=== PATIENT | female | born 1955 | race Caucasian/White ===

== ENCOUNTER 2021-10-19 10:37 | Emergency (ER) | payer MEDICARE, MEDICAID, SELFPAY ==
[2021-10-19 10:38] VITALS: BP 131/55; PULSE 46; RESP 15; TEMP 36.5; O2SAT 98; BMI 31.1
--- NOTE | 2021-10-19 10:52 | ECG_ITS ---
APPROVED REPORT Exam: Resting ECG HR:44 bpm ECG Measurements Heart Rate 44 AXES AR 179 P 66 QRSd 92 QRS -21 QT 460 T 43 QTc 411 Conclusion SINUS BRADYCARDIA BORDERLINE LEFT AXIS DEVIATION [QRS AXIS < -20] LOW QRS VOLTAGE IN PRECORDIAL LEADS [QRS DEFLECTION < 1.0 mV IN CHEST LEADS] BORDERLINE ECG UNCONFIRMED REPORT Electronically signed by : Juancarlos Carpenter MD 10/21/2021 17:21:21
--- NOTE | 2021-10-19 10:58 | XR_ITS ---
PROCEDURE INFORMATION: Exam: XR Chest Exam date and time: 10/19/2021 11:23 AM Age: 66 years old Clinical indication: Shortness of breath; Additional info: Sob/cp TECHNIQUE: Imaging protocol: Radiologic exam of the chest. Views: 1 view. COMPARISON: No relevant prior studies available. FINDINGS: Lungs: There is linear marking in the right mid lung field which may be related to scarring or atelectasis. There is no pulmonary consolidation or pulmonary edema. Pleural spaces: No pleural effusion. No pneumothorax. Heart/Mediastinum: No cardiomegaly. Bones/joints: There are degenerative changes of the spine. IMPRESSION: 1. No evidence of active pulmonary disease. 2. A followup PA and lateral radiograph is recommended when the patient is clinically able.
--- NOTE | 2021-10-19 10:59 | [facility].EDGENADL ---
Discharge Plan Disposition Patient Disposition: Home, Self-Care Condition: Good Chief Complaint: Upper Respiratory Infection Referrals Follow up/Referrals: Miguelina Franz APRN [Primary Care Provider] - See instructions Activity Restrictions/Add. Instructions Additional Instructions/Restrictions: Your COVID test was positive today. You should quarantine as long as you have symptoms. Take tylenol/ibuprofen as needed and stay well hydrated. Your lab tests and x-ray today were normal, but if your condition worsens, return to the emergency department. Otherwise follow up with your family physician as needed. Clinical Impressions Clinical Impression: COVID-19, Cough Instructions Patient Instructions: Cough, Coronavirus Disease 2019, DI for COVID-19 (Suspected or Confirmed ) Print Language Print Language: Dutch Discharge ED Provider: Palomo Waller General Adult HPI General Chief complaint: Upper Respiratory Infection Stated complaint: chills, no smell, sob Time Seen by Provider: 10/19/21 10:59 Mode of Arrival: Ambulatory Source of Information: Patient Limitations: No Limitations History of Present Illness HPI narrative: Patient is a 66-year-old female who presents with approximately 5 days of illness with symptoms including generalized fatigue, mild shortness of breath intermittently, nausea, intermittent cough productive of whitish sputum. She states over the past day or so she had developed chest pressure which had become constant and raise concern as she has a history of angina. She denies any prior heart attack, states she had had a stress test but its been over a year since last time. She been taking Robitussin for cough and aspirin for subjective fever. Denies any vomiting, abdominal pain, diarrhea, or any other symptoms. Related Data Allergies Allergy/AdvReac Type Severity Reaction Status Date / Time Sulfa (Sulfonamide Allergy Verified 10/19/21 11:00 Antibiotics) [facility] Social History Smoking Status: Never smoker alcohol intake: never current occupational status: other Travel in the last 8 weeks: None ROS Obtained: Yes Systems reviewed as appropriate & no additional complaints except as documented Constitutional Constitutional: Reports fatigue Eyes Eyes: Reports system reviewed and no additional complaints, except as documented ENT Ears, Nose, Mouth, and Throat: Reports system reviewed and no additional complaints, except as documented Cardiovascular Cardiovascular: Reports chest pain Respiratory Respiratory: Reports chest congestion, Reports cough and Reports cough with sputum production Gastrointestinal Gastrointestingal: Reports system reviewed and no additional complaints, except as documented Genitourinary Female Genitourinary: Reports system reviewed and no additional complaints, except as documented Musculoskeletal Musculoskeletal: Reports system reviewed and no additional complaints, except as documented Integumentary/Breasts Skin/Breast: Reports system reviewed and no additional complaints, except as documented Neurologic Neurologic: Reports system reviewed and no additional complaints, except as documented Endocrine Endocrine: Reports fatigue Physical Exam General General appearance: alert and in no apparent distress Head Head exam: atraumatic, normocephalic and normal inspection Eye Eye exam: Present normal appearance, PERRL and EOMI ENT ENT exam: Present normal exam, normal oropharynx, mucous membranes moist, TM's normal bilaterally and normal external ear exam Neck Neck exam: Present normal inspection, full ROM and trachea midline; Absent meningismus or lymphadenopathy Chest Chest inspection: Present normal inspection and symmetric chest wall rise; Absent tenderness Respiratory Respiratory exam: Present normal lung sounds bilaterally; Absent respiratory distress Cardiovascular Cardiovascular exam: Present regul
[2021-10-19 11:00] VITALS: BP 128/86; PULSE 45; RESP 12; O2SAT 98
[2021-10-19 11:00] LABS: Influenza A, PCR Not Detected (NotDetected); Influenza B, PCR Not Detected (NotDetected)
[2021-10-19 11:21] LABS: Basophils % 1.1 % (0.1-2.0); Eosinophils # 0.1 K/mm3 (0.0-0.4); Hematocrit 48.8 % (37.0-47.0); Hemoglobin 14.6 g/dL (12.2-16.2); Lymphocytes # 1.8 K/mm3 (0.7-4.5); Lymphocytes % 47.7 % (10-50); Mean Corpuscular HGB Conc 29.9 g/dL (31.8-35.4); Mean Corpuscular Hemoglobin 28.3 pg (27.0-31.2); Mean Corpuscular Volume 94.6 fl (81-99); Mean Platelet Volume 8.4 fl (7.4-10.4); Monocytes # 0.3 K/mm3 (0.1-1.0); Monocytes % 7.6 % (1.7-9.3); Neutrophils # 1.6 K/mm3 (1.8-7.8); Neutrophils % 41.6 % (37.0-80.0); Platelet Count 191 K/mm3 (142-424); Red Blood Count 5.16 M/mm3 (4.20-5.40); Red Cell Distribution Width 14.1 % (11.5-17.5); White Blood Count 3.8 K/mm3 (4.8-10.8)
[2021-10-19 11:22] LABS: Chloride 111 mmol/L (98-107); Potassium 4.5 mmoL/L (3.5-5.1); Sodium 143 mmol/L (136-145)
[2021-10-19 11:25] LABS: Alanine Aminotransferase 16 U/L (12-78); Albumin Level 3.9 g/dl (3.5-5.0); Albumin/Globulin Ratio 1.2 (1.1-1.8); Alkaline Phosphatase 90 U/L (38-126); Anion Gap 10.5 mEq/L (5-15); Aspartate Amino Transferase 34 U/L (14-36); Blood Urea Nitrogen 12 mg/dl (7-17); Calcium 8.7 mg/dl (8.4-10.2); Carbon Dioxide 26 mmol/L (22.0-30.0); Creatinine Clearance Estimated 70 mL/min (50-200); Estimated Glomerular Filt Rate 50 ml/min (>60); GFR (African American) 60 ML/MIN (>60); Globulin 3.3 g/dL (1.3-3.2); Glucose 97 mg/dl (74-100); Total Protein,Serum 7.2 g/dl (6.3-8.2)
[2021-10-19 11:26] LABS: Bilirubin,Total < 0.1 mg/dl (0.2-1.3)
[2021-10-19 11:38] LABS: Troponin I < 0.01 ng/ml (0.00-0.034)
[2021-10-19 11:51] LABS: Coronavirus 19, PCR Detected (NotDetected)
[2021-10-19 12:17] VITALS: BP 126/74; PULSE 42; RESP 16; TEMP 36.7; O2SAT 97
== END 2021-10-19 12:17 | disposition home or self-care (01) ==
PROVIDERS: Emergency Provider Emergency Medicine; PCP Nurse Practitioner Family
DX: U07.1 COVID-19 (principal); R68.83 Chills (without fever); R43.9 Unspecified disturbances of smell and taste; R06.02 Shortness of breath
CPT/HCPCS: 71045; 80053; 84484; 85025; 93005; 99284; C9803; U0003; U0005